=== PATIENT | male | born 1955 | race Caucasian/White ===

== ENCOUNTER 2021-06-08 09:38 | Emergency (ER) | payer OTHER, MEDICARE ==
[2021-06-08 10:08] VITALS: BMI 27.0
[2021-06-08] MEDS ORDERED: levETIRAcetam 500 MG/5 ML INJECTION VIAL IVPB ONE ×2 (10:47→11:13)
[2021-06-08 11:21] LABS: BASO % 0.4 % (0-2.0); EOS % 1.8 % (0-4.5); HEMATOCRIT 30.4 % (35.4-49); HEMOGLOBIN 10.2 GM/dL (11.7-16.9); MCH 31.3 pg (25.7-33.7); MCHC 33.5 g/dl (32.0-35.9); MEAN CELL VOLUME 93.4 fl (80-96); MEAN PLT VOLUME 8.4 fl (7.5-11.1); MONO % 5.6 % (3.8-10.2); NEUT % 82.2 % (42.8-82.8); PLATELET COUNT 99 10^3/uL (134-434); RBC 3.26 M/mm3 (4.00-5.60); RDW 14.6 % (11.9-15.9); WHITE BLOOD COUNT 4.7 K/mm3 (4.0-10.0)
[2021-06-08 11:38] LABS: CHLORIDE 104 mmol/L (98-107); SODIUM 138 mmol/L (136-145)
[2021-06-08 11:40] LABS: ALBUMIN 3.4 g/dl (3.4-5.0); ANION GAP 10 MMOL/L (8-16); CALCIUM 8.2 mg/dL (8.5-10.1); CO2 24 mmol/L (21-32); GLUCOSE,RANDOM 116 mg/dL (74-106)
[2021-06-08 11:41] LABS: BLOOD UREA NITROGEN 47.5 mg/dL (7-18)
[2021-06-08 11:43] LABS: CREATININE 5.6 mg/dL (0.55-1.3); SGPT/ALT 17 U/L (13-61)
[2021-06-08 11:44] LABS: SGOT/AST 15 U/L (15-37)
[2021-06-08 11:45] LABS: BILIRUBIN,TOTAL 0.8 mg/dL (0.2-1); TOT PROT 6.4 g/dl (6.4-8.2)
[2021-06-08 11:46] LABS: ALK PHOS 125 U/L (45-117)
[2021-06-08 13:37] VITALS: BP 119/64; PULSE 66
== END 2021-06-08 13:37 | disposition home or self-care (01) ==
LOC: JER 09:38 → MERGE 09:38 → JER 13:37
PROC: 3E033GC Introduction of Other Therapeutic Substance into Peripheral Vein, Percutaneous Approach (ICD-10-PCS; principal; 2021-06-08)
DX: R56.9 Unspecified convulsions (principal); Z91.14 Patient's other noncompliance with medication regimen
CPT/HCPCS: 36415; 70450-TC; 80053; 80177; 82962; 84484; 85025; 93005; 93010; 99285-25